=== PATIENT | male | born 1940 | race Caucasian/White ===

== ENCOUNTER 2022-05-19 11:32 | Emergency (ER) | payer MEDICARE, BC ==
[2022-05-19] MEDS ORDERED: Lidocaine 5% Oint 35.44 GM Tube TOP ONE (11:49)
[2022-05-19] MEDS ORDERED: Mupirocin Oint 22 GM Tube TOP SCH (14:00)
== END 2022-05-19 12:25 | disposition home or self-care (01) ==
LOC: DL.ED 11:32
DX: L55.1 Sunburn of second degree (principal)
CPT/HCPCS: 99282; A9270